=== PATIENT | female | born 1990 | race American Indian/Alaskan Native ===

== ENCOUNTER 2020-07-05 16:43 | Outpatient (REF) | payer OTHER, SELFPAY ==
--- NOTE | 2020-07-05 16:53 | XR_ITS ---
EXAMINATION: XR HAND, BILATERAL CLINICAL INFORMATION: Pain. COMPARISON: None TECHNIQUE: Each 3 views bilateral hands. FINDINGS: In bilateral hands, there is no evidence of fracture or dislocation. Joint spaces are maintained. No evidence of significant arthropathy. No erosions. No abnormal soft tissue calcification. Normal bone mineralization. XR/XR hand LT 2V IMPRESSION: No evidence of acute osseous abnormality.
--- NOTE | 2020-07-05 16:53 | XR_ITS ---
EXAMINATION: XR HAND, BILATERAL CLINICAL INFORMATION: Pain. COMPARISON: None TECHNIQUE: Each 3 views bilateral hands. FINDINGS: In bilateral hands, there is no evidence of fracture or dislocation. Joint spaces are maintained. No evidence of significant arthropathy. No erosions. No abnormal soft tissue calcification. Normal bone mineralization. XR/XR hand RT 2V IMPRESSION: No evidence of acute osseous abnormality.
== END 2020-07-05 16:44 | disposition home or self-care (01) ==
LOC: HO.XRAY 16:43
PROVIDERS: PCP Internal Medicine; Visit Provider Internal Medicine
DX: M79.643 Pain in unspecified hand (principal)
CPT/HCPCS: 73120

== ENCOUNTER 2020-07-19 14:09 | Outpatient (RCR) | payer OTHER, SELFPAY ==
--- NOTE | 2020-07-19 15:38 | MHC.OT.OEV ---
[address] [phone] F: [phone] Occupational Therapy Evaluation Diagnosis: Hand Pain Date of Onset: 03/23/20 Attending Provider: Dr Sal Hilliard History of Current Condition: Pt presents w/ pain in bilateral wrists and hands over the past few months. She has x-rays which showed no abnormalities. 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) Living Situation, Family and/or Social Support: Lives w/ partner and four children Current Level of Function and Occupation Self Care, Employment, Leisure: Difficulty lifting objects, opening containers, attempted push-ups and had pain, pain after bowling Sleep: Some numbness B/L UE's when sleeping Pain Assessment Pain Score: 4 Pain Scale Used: Numeric (0 - 10) Pain Location and Description: Pt reports constant pain, some numbness, worsens w/ increased work and use Aggravating Factors: Lifting, grasping Alleviating Factors: None tried Skin and Soft Tissue Assessment Skin and Soft Tissue: Comments: WNL Nerve assessment Ulnar Nerve: WNL Median Nerve: WNL Radial Nerve: WNL Comments: Sensory Assessment Comments: B/L hands/digits diminished light touch Edema Assessment Upper Extremity: WNL Lower Extremity: WNL Dexterity Assessment Dexterity: WNL Special Tests Comments: (-) Phalen's B/L'ly AROM(PROM) Strength Cervical Cervical Flexion: Cervical Extension: Cervical Lateral Flexion: Cervical Rotation: Comments: WNL Shoulder Flexion: Extension: Abduction: Internal Rotation: External Rotation: Comments: WNL Flexion: Extension: Abduction: Internal Rotation: External Rotation: Comments: Elbow Flexion: Extension: Pronation: Supination: Comments: WFL Flexion: Extension: Pronation: Supination: Comments: Wrist Flexion: Extension: Ulnar Deviation: Radial Deviation: Comments: WFL Flexion: Extension: Ulnar Deviation: Radial Deviation: Comments: Thumb Thumb CMC Flexion: Thumb MCP Flexion: Thumb IP Flexion: Radial Abduction: Palmar Abduction: Holt (Kapandji 0-10): Comments: WFL Digits Index MCP: PIP: DIP: Long MCP: PIP: DIP: Ring MCP: PIP: DIP: Small MCP: PIP: DIP: Comments: WFL (limtied full composite fist only due to artificial nail length) Gross Grasp: R 70lb L 60lb Lateral Pinch: R 17lb L 16lb Two-Point Pinch: R 10lb L 9lb Three-Jaw Deepak: R 12lb L 13lb Comments: Patient Education Primary Language: Montenegrin Trials Manager Required: No Current Knowledge: Understands information with skills for self-management Teaching Method: Demonstration Handouts Verbal Education Needs Identified on Evaluation: ADL's Disease Information Equipment Use Exercise Pain Safety How did patient/family demonstrate learning? Patient demonstrates Patient verbalizes Barriers to Learning: None Readiness for Learning: Accepting Who was educated? Patient Comments: Plan of Care Assessment: Isatu presents w/ bilateral hand/wrist pain and numbness, numbness worsening at nighttime and hand pain more w/ heavy activity. On assessment, no indication of tendinitis or carpal tunnel syndrome. UE symptoms may be originating from postural issues and upper back weakness. She also has long artificial nails which may be contributing to intrinsic tightness. She will benefit from brief course of OT for education on activity modifications and positioning as well as UE exercises and strengthening. STG Duration: 3 weeks Short Term Goals: Ind w/ HEP Ind w/ activity and sleep modifications Pt to report decrease in nighttime symptoms Pt to report decrease in hand pain use joint protection/act modifications LTG Duration: Mcfp Goals: Frequency and Duration: The patient will be seen 2x/wk, 3 weeks Treatment Plan: Therapeutic Exercise Therapeutic Activity Home Exercise Program Patient Education ADL Training MHP Soft Tissue Mobilization Kinesiotaping Electronically Signed By: Trudi Ayon OTR/L Reviewed/agree with student documentation: N/A Therapist: Please sign and return to therapist, Thank you for your referral.
== END 2020-09-07 07:51 | disposition home or self-care (01) ==
LOC: HO.OT 14:09
PROVIDERS: PCP Internal Medicine; Visit Provider Internal Medicine
DX: M79.643 Pain in unspecified hand (principal)
CPT/HCPCS: 97110; 97165

== ENCOUNTER 2020-07-26 11:36 | Outpatient (REF) | payer OTHER, SELFPAY | END 2020-07-26 11:37 | disposition home or self-care (01) | LOC: HO.LAB 11:36 | PROVIDERS: Visit Provider Internal Medicine | DX: Z20.828 Contact with and (suspected) exposure to other viral communicable diseases (principal) | CPT/HCPCS: 36415; C9803; U0003 ==

== ENCOUNTER 2020-11-18 10:50 | Outpatient (REF) | payer OTHER, SELFPAY ==
[2020-11-18 12:23] LABS: Thyroid Stimulating Hormone 1.13 uIU/mL (0.32-4.0)
== END 2020-11-18 10:51 | disposition home or self-care (01) ==
LOC: HO.LAB 10:50
PROVIDERS: PCP Internal Medicine; Visit Provider Internal Medicine Endocrinology, Diabetes & Metabolism
DX: E03.8 Other specified hypothyroidism (principal)
CPT/HCPCS: 36415; 84439; 84443

== ENCOUNTER → 2020-11-24 08:00 | Outpatient (BNVA) | payer OTHER, SELFPAY | PROVIDERS: PCP Internal Medicine; Visit Provider Internal Medicine Endocrinology, Diabetes & Metabolism | DX: E03.8 Other specified hypothyroidism (principal); E06.3 Autoimmune thyroiditis; E66.9 Obesity, unspecified | CPT/HCPCS: 99212 ==

== ENCOUNTER 2021-02-28 09:26 | Outpatient (REF) | payer OTHER, SELFPAY ==
[2021-03-01 03:58] LABS: CT PCR NOT DETECTED (Not Detect.); NG PCR NOT DETECTED (Not Detect.)
== END 2021-02-28 09:27 | disposition home or self-care (01) ==
LOC: HO.LAB 09:26
PROVIDERS: PCP Internal Medicine; Visit Provider Advanced Practice Midwife
DX: Z01.411 Encounter for gynecological examination (general) (routine) with abnormal findings (principal); Z11.3 Encounter for screening for infections with a predominantly sexual mode of transmission; T83.32XA Displacement of intrauterine contraceptive device, initial encounter; D22.5 Melanocytic nevi of trunk; Z20.2 Contact with and (suspected) exposure to infections with a predominantly sexual mode of transmission
CPT/HCPCS: 87491; 87591

== ENCOUNTER 2021-03-02 12:42 | Outpatient (REF) | payer OTHER, SELFPAY ==
--- NOTE | ~2021-03-02 | US_ITS ---
EXAMINATION: US PELVIS TRANSVAGINAL CLINICAL INFORMATION: Displacement of the IUD. COMPARISON: None. TECHNIQUE: Transcutaneous and transvaginal pelvic ultrasound. Transvaginal scanning was performed after voiding to better evaluate the endometrium and adnexa. FINDINGS: The uterus measures 9.2 x 4.0 x 5.6 cm. The uterus is anteverted. No suspicious abnormalities region of the cervix. The uterine contour is smooth. The endometrium measures 0.57 cm. The uterus appears to have either a septate versus arcuate configuration. The IUD is seen to be lying in the lower uterine segment and cervix. There is a small echogenic focus seen within the left posterior endometrium and does not have the appearance of a polyp. No definite hematoma is appreciated. No definite perforation of the IUD is seen. The right ovary measures approximately 3.1 x 1.5 x 2.1 cm. The calculated right ovarian volume is approximately 5.3 mL. No suspicious adnexal findings. The left ovary measures 4.2 x 2.5 x 3.5 cm. The calculated left ovarian volume is approximately 19.3 mL. Within the left adnexa, there is a 1.2 x 2.0 x 1.9 cm complex fluid collection which may represent a hemorrhagic cyst/corpus luteum. No significant free pelvic fluid. US/US pelvic and transvaginal IMPRESSION: Septate versus arcuate uterus. IUD lying in the lower uterine segment and cervix without definite evidence of uterine wall perforation. Complex left ovarian cyst.
== END 2021-03-02 12:43 | disposition home or self-care (01) ==
LOC: HO.HMGCX 12:42
PROVIDERS: PCP Internal Medicine; Visit Provider Advanced Practice Midwife
DX: T83.32XA Displacement of intrauterine contraceptive device, initial encounter (principal)
CPT/HCPCS: 76830; 76856

== ENCOUNTER → 2021-03-16 10:34 | Outpatient (BNVA) | payer OTHER, SELFPAY | PROVIDERS: PCP Internal Medicine; Visit Provider Advanced Practice Midwife ==

== ENCOUNTER → 2021-03-21 08:45 | Outpatient (BNVA) | payer OTHER, SELFPAY | PROVIDERS: PCP Internal Medicine; Visit Provider Advanced Practice Midwife | DX: Z30.432 Encounter for removal of intrauterine contraceptive device (principal); Z30.09 Encounter for other general counseling and advice on contraception | CPT/HCPCS: 58301; 81025 ==

== ENCOUNTER → 2021-04-05 08:49 | Outpatient (BNVA) | payer OTHER, SELFPAY | PROVIDERS: PCP Internal Medicine; Visit Provider Advanced Practice Midwife | DX: Z30.09 Encounter for other general counseling and advice on contraception (principal) | CPT/HCPCS: 81025; 99212 ==

== ENCOUNTER 2021-05-25 11:22 | Outpatient (REF) | payer OTHER, SELFPAY ==
--- NOTE | ~2021-05-25 | US_ITS ---
EXAMINATION: ULTRASOUND OF THE PELVIS CLINICAL INFORMATION: Follow-up ovarian cyst.. COMPARISON: 03/02/2021. TECHNIQUE: Transabdominal and transvaginal pelvic ultrasound. A transvaginal study was performed in addition to the transabdominal study which did not yield an adequate examination of the uterus and ovaries due to superimposed distended gas-filled loops of bowel. FINDINGS: The uterus is normal in size and appearance, measuring 9.3 x 3.6 x 5.5 cm longitudinally, anteroposteriorly and transversely. The endometrial stripe thickness is normal, measuring 0.8 cm in thickness. The IUD has been removed. Again there is suggestion of septate versus arcuate uterus. No focal myometrial mass is seen. The ovaries bilaterally are visualized and appear normal, with the right ovary measuring 3.7 x 2.2 x 1.9 cm and the left ovary measuring 2.8 x 2.2 x 2.8 cm. There are multiple follicles seen in both ovaries. Corpus luteal cyst on the right measures 1.9 cm. No adnexal mass or free fluid collection seen. US/US pelvic and transvaginal IMPRESSION: No suspicious ovarian cyst. Right corpus luteum. Previously seen left ovarian complex cyst has resolved..
== END 2021-05-25 11:23 | disposition home or self-care (01) ==
LOC: HO.US 11:22
PROVIDERS: PCP Internal Medicine; Visit Provider Advanced Practice Midwife
DX: N83.299 Other ovarian cyst, unspecified side (principal)
CPT/HCPCS: 76830; 76856

== ENCOUNTER → 2021-06-08 11:16 | Outpatient (BNVA) | payer OTHER, SELFPAY | PROVIDERS: Visit Provider Advanced Practice Midwife ==

== ENCOUNTER 2021-07-12 09:59 | Outpatient (REF) | payer OTHER, SELFPAY ==
[2021-07-12 11:27] LABS: COVID-19 Test Negative (Negative); IDNOW Serial# 16C4AD1C
== END 2021-07-12 10:00 | disposition home or self-care (01) ==
LOC: HO.LAB 09:59
PROVIDERS: Visit Provider Internal Medicine
DX: Z20.822 Contact with and (suspected) exposure to COVID-19 (principal)
CPT/HCPCS: 36415; 87635; C9803

== ENCOUNTER 2021-07-21 14:35 | Outpatient (REF) | payer OTHER, SELFPAY ==
[2021-07-21 16:20] LABS: Binax Internal Control QC Valid; Binax Lot number: 9864; Binax Now Covid-19 Ag Negative (Negative)
== END 2021-07-21 14:36 | disposition home or self-care (01) ==
LOC: HO.LAB 14:35
PROVIDERS: Visit Provider Internal Medicine
DX: Z20.822 Contact with and (suspected) exposure to COVID-19 (principal)
CPT/HCPCS: 36415; C9803

== ENCOUNTER 2022-03-01 09:46 | Outpatient (REF) | payer OTHER, SELFPAY | END 2022-03-01 09:47 | disposition home or self-care (01) | LOC: HO.LAB 09:46 | PROVIDERS: Visit Provider Advanced Practice Midwife | DX: Z01.419 Encounter for gynecological examination (general) (routine) without abnormal findings (principal) | CPT/HCPCS: 88142 ==

== ENCOUNTER 2022-03-14 09:32 | Outpatient (REF) | payer OTHER, SELFPAY ==
[2022-03-14 11:52] LABS: Free T4 (Free Thyroxine) 0.71 ng/dL (0.71-1.85); Thyroid Stimulating Hormone 48.29 uIU/mL (0.32-4.0)
== END 2022-03-14 09:33 | disposition home or self-care (01) ==
LOC: HO.LAB 09:32
PROVIDERS: PCP Internal Medicine; Visit Provider Internal Medicine Endocrinology, Diabetes & Metabolism
DX: E03.8 Other specified hypothyroidism (principal); E06.3 Autoimmune thyroiditis
CPT/HCPCS: 36415; 84439; 84443

== ENCOUNTER 2022-04-19 09:02 | Outpatient (REF) | payer OTHER, SELFPAY ==
[2022-04-19 09:29] LABS: COVID-19 Test Positive (Negative); IDNOW Serial# 55D5AD1C
== END 2022-04-19 09:03 | disposition home or self-care (01) ==
LOC: HO.LAB 09:02
PROVIDERS: Visit Provider Internal Medicine
DX: Z20.822 Contact with and (suspected) exposure to COVID-19 (principal)
CPT/HCPCS: 87635; C9803

== ENCOUNTER 2022-04-24 09:07 | Outpatient (REF) | payer OTHER, SELFPAY ==
[2022-04-24 09:46] LABS: COVID-19 Test Positive (Negative); IDNOW Serial# 55D5AD1C
== END 2022-04-24 09:08 | disposition home or self-care (01) ==
LOC: HO.LAB 09:07
PROVIDERS: Visit Provider Internal Medicine
DX: Z20.822 Contact with and (suspected) exposure to COVID-19 (principal)
CPT/HCPCS: 87635; C9803

== ENCOUNTER 2022-05-24 09:18 | Outpatient (REF) | payer OTHER, SELFPAY ==
[2022-05-24 11:01] LABS: Free T4 (Free Thyroxine) 1.18 ng/dL (0.71-1.85); Thyroid Stimulating Hormone 5.66 uIU/mL (0.32-4.0)
== END 2022-05-24 09:19 | disposition home or self-care (01) ==
LOC: HO.LAB 09:18
PROVIDERS: PCP Internal Medicine; Visit Provider Internal Medicine Endocrinology, Diabetes & Metabolism
DX: E03.8 Other specified hypothyroidism (principal); E06.3 Autoimmune thyroiditis
CPT/HCPCS: 36415; 84439; 84443

== ENCOUNTER 2022-06-22 10:51 | Outpatient (REF) | payer OTHER, SELFPAY ==
[2022-06-22 11:01] LABS: MANUAL DIFF FLAG NO
[2022-06-22 11:47] LABS: Basophils Percent Auto 0.4 % (0-2); Eosinophils Absolute Auto 0.1 X10*3/uL (0.0-0.4); Hematocrit 38.9 % (37.0-47.0); Hemoglobin 12.5 g/dl (12.0-16.0); Imm Gran Abs Auto 0.02 X10*3/uL (0.00-0.03); Imm Gran Pct Auto 0.3 % (0.0-0.4); Lymphocytes Absolute Auto 1.8 X10*3/uL (1.2-4.9); Lymphocytes Percent Auto 25.7 % (20-40); Mean Corpuscular HGB Conc 32.1 g/dl (31.0-35.0); Mean Corpuscular Hemoglobin 27.6 pg (27.0-33.0); Mean Corpuscular Volume 85.9 fL (80.0-98.0); Mean Platelet Volume 10.7 fL (9.4-12.3); Monocytes Absolute Auto 0.5 X10*3/uL (0.1-1.2); Monocytes Percent Auto 7.5 % (2-11); Neutrophils Absolute Auto 4.5 x10*3/uL (2.0-8.3); Neutrophils Percent Auto 65.1 % (45-73); Platelet Count 295 X10*3/uL (160-400); Red Blood Count 4.53 X10*6/uL (4.20-5.50); Red Cell Distribution Width 11.7 % (11.0-16.0); White Blood Count 6.9 X10*3/uL (4.8-10.8)
[2022-06-22 12:40] LABS: Alanine Aminotransferase 12 U/L (0-31); Albumin Level 4.3 g/dL (3.5-5.0); Alkaline Phosphatase 64 U/L (39-117); Anion Gap 10 (12-20); Aspartate Amino Transferase 17 U/L (5-31); Bilirubin Total 0.4 mg/dL (0.0-1.0); Blood Urea Nitrogen 8 mg/dL (9-16); Calcium 10.1 mg/dL (8.4-10.2); Carbon Dioxide 29 mmol/L (22-29); Chloride 101 mmol/L (96-108); Estimated Glomerular Filt Rate > 60; Glucose Random 82 mg/dL (60-115); Potassium 4.4 mmol/L (3.3-5.1); Sodium 136 mmol/L (135-145); Total Protein 6.7 g/dL (6.5-8.0); Vitamin D 25-OH Total 32.8 ng/mL (>30)
== END 2022-06-22 10:52 | disposition home or self-care (01) ==
LOC: HO.LAB 10:51
PROVIDERS: PCP Internal Medicine; Visit Provider Nurse Practitioner Family
DX: Z00.00 Encounter for general adult medical examination without abnormal findings (principal)
CPT/HCPCS: 36415; 80053; 82306; 85025

== ENCOUNTER 2022-08-24 16:41 | Outpatient (REF) | payer OTHER, SELFPAY ==
[2022-08-24 17:54] LABS: Free T4 (Free Thyroxine) 1.18 ng/dL (0.71-1.85); Thyroid Stimulating Hormone 2.39 uIU/mL (0.32-4.0)
== END 2022-08-24 16:42 | disposition home or self-care (01) ==
LOC: HO.LAB 16:41
PROVIDERS: PCP Internal Medicine; Visit Provider Internal Medicine Endocrinology, Diabetes & Metabolism
DX: E03.8 Other specified hypothyroidism (principal); E06.3 Autoimmune thyroiditis
CPT/HCPCS: 36415; 84439; 84443

== ENCOUNTER → 2022-08-25 15:52 | Outpatient (BNVA) | payer OTHER, SELFPAY | PROVIDERS: PCP Internal Medicine; Visit Provider Internal Medicine Endocrinology, Diabetes & Metabolism | DX: E03.8 Other specified hypothyroidism (principal); E06.3 Autoimmune thyroiditis; Z79.899 Other long term (current) drug therapy | CPT/HCPCS: 99212 ==

== ENCOUNTER 2023-03-19 16:17 | Outpatient (REF) | payer OTHER, SELFPAY ==
[2023-03-19 18:26] LABS: Thyroid Stimulating Hormone 29.33 uIU/mL (0.32-4.0)
== END 2023-03-19 16:18 | disposition home or self-care (01) ==
LOC: HO.LAB 16:17
PROVIDERS: PCP Internal Medicine; Visit Provider Internal Medicine
DX: E03.8 Other specified hypothyroidism (principal); E06.3 Autoimmune thyroiditis
CPT/HCPCS: 36415; 84443

== ENCOUNTER 2023-06-18 12:07 | Outpatient (REF) | payer OTHER, SELFPAY ==
[2023-06-18 13:38] LABS: Thyroid Stimulating Hormone 3.91 uIU/mL (0.32-4.0)
== END 2023-06-18 12:08 | disposition home or self-care (01) ==
LOC: HO.LAB 12:07
PROVIDERS: PCP Internal Medicine; Visit Provider Internal Medicine
DX: E03.8 Other specified hypothyroidism (principal); E06.3 Autoimmune thyroiditis
CPT/HCPCS: 36415; 84443

== ENCOUNTER 2023-06-20 12:44 | Outpatient (AMB) | payer OTHER, SELFPAY ==
--- NOTE | 2023-06-20 13:03 | AM.OFFVISNUR ---
Intake Intake Visit Reasons: PPD Implant Allergies No Known Allergies Allergy (Verified 08/25/22 15:58) Office Meds tuberculin PPD 5 tub. unit/0.1 mL intradermal injection solution Performing Provider: Sharon Hilliard MD [place] [facility] Administered by: Diana Walls RN on 06/20/23 13:03 Dose Route Admin Location Dispensed Lot Number Expiration Date NDC Travel Registered Nurse Nicu 0.1 mL intradermal right forearm 0.1 mL [id number] 07/22/26 87135-383-95 [employer] Coding Assessment & Plan Assessment & Plan Orders: Orders AMB PPD Planted Today Z11.1 - Encounter for screening for respiratory tuberculosis
== END 2023-06-20 13:12 | disposition home or self-care (01) ==
PROVIDERS: PCP Internal Medicine; Visit Provider Internal Medicine
DX: Z11.1 Encounter for screening for respiratory tuberculosis (principal)
CPT/HCPCS: 86580

== ENCOUNTER 2023-06-25 08:20 | Outpatient (REF) | payer OTHER, SELFPAY ==
--- NOTE | ~2023-06-25 | XR_ITS ---
EXAMINATION: XR CHEST CLINICAL INFORMATION: Positive TB test COMPARISON: 09/02/2018 TECHNIQUE: 2 views of the chest were obtained. FINDINGS: No significant abnormality is noted involving the heart, lungs, mediastinum, bony thorax or soft tissues. XR/XR chest 2V IMPRESSION: Unremarkable examination, without interval change.
== END 2023-06-25 08:21 | disposition home or self-care (01) ==
LOC: HO.XRAY 08:20
PROVIDERS: Visit Provider Internal Medicine
DX: R76.11 Nonspecific reaction to tuberculin skin test without active tuberculosis (principal)
CPT/HCPCS: 71046

== ENCOUNTER 2023-07-02 09:17 | Outpatient (AMB) | payer OTHER, SELFPAY ==
[2023-07-02 09:25] VITALS: BP 102/60; PULSE 70; BMI 30.9
--- NOTE | 2023-07-02 09:25 | A.OFFPC_ITS ---
Vital Signs 07/02/23 09:25 Height 5 ft 3 in Weight 174 lb 6 oz BMI 30.9 BP 102/60 Blood Pressure Location Lt brachial Position Sitting Pulse 70 Pulse Source Palpation Intake Visit Reasons: Annual Exam + NEEDS PHQ-9/THRIVE Audiometrist Required: No Accompanied by: Self / Same As Patient Allergies No Known Allergies Allergy (Verified 07/02/23 09:32) Medication List - Last Reconciled 07/02/23 by Sharon Hilliard MD levothyroxine 112 mcg PO DAILY Tobacco use date assessed: 06/22/22 HPI HPI Comments History of Present Illness Details This is a 32-year-old female that comes for her physical exam. Last Pap smear was 2021. No chest pain or shortness of breath. [facility] Medical History Acute bacterial sinusitis Arcuate uterus Obesity (BMI 30-39.9) Hand pain Hypothyroidism Surgical History History of section Family History Father CVD (cardiovascular disease) Schizophrenia Mother Hypertension Pancreatic cancer Maternal Grandmother Anal cancer Family/Other FH: mental illness Other Mental health disorder Social History Housing: House Alcohol intake: current Alcohol intake frequency: a few times a month Patient Tobacco Use Status: Never used Tobacco e-Cigarette/Vaping Use: Never Used Second Hand Smoke Exposure: No service: No Current occupational status: employed Current occupation: [employer] Sexual orientation: Straight/Heterosexual Gender identity: Female Cognitive needs: No Hearing needs: No Vision needs: No Female Reproductive History Menstrual Age of Menarche: 14 Questionnaire PHQ-9 Over the last 2 weeks, how often have you been bothered by any of the following problems? 1. Little interest or pleasure in doing things: not at all 2. Feeling down, depressed, or hopeless: not at all 3. Trouble falling or staying asleep, or sleeping too much: not at all 4. Feeling tired or having little energy: not at all 5. Poor appetite or overeating: not at all 6. Feeling bad about yourself - or that you are a failure or have let yourself or your family down: not at all 7. Trouble concentrating on things, such as reading the newspaper or watching television: not at all 8. Moving or speaking so slowly that other people could have noticed. Or the opposite - being so fidgety or restless that you have been moving around a lot more than usual: not at all 9. Thoughts that you would be better off or of hurting yourself in some way: not at all Total score: 0 Depression Screening Interpretation: Negative Depression Screening Done: Yes 27406 - PHQ-9 Billing: Yes Source: Developed by Drs. Juwan Norton, Tish Perales, Angus Guzman and colleagues, with an educational kia from [employer]. Thrive Questionnaire Date Thrive assessed: 07/02/23 I am a: Patient What is your living situation today?: I have a steady place to live Within the past 12 months, did the food you bought not last and you didn't have the money to get more?: Never true Within the past 12 months, did you worry whether your food would run out before you got money to buy more?: Never true Do you have trouble paying for medicines?: No Do you have trouble getting transportation to medical appointments?: No Do you have trouble paying your heating and electricity bill?: No Do you have trouble taking care of your child, family member or friend?: No Do you have trouble with day-to-day activities such as bathing, preparing meals, shopping, managing finances, etc.?: No Are you currently unemployed and looking for a job?: No Are you interested in more education?: No Please select the resources that you would like help with: None Currently or been in a relationship where the following occur: no concerns reported AUDIT C Alcohol Use Questionnaire (AUDIT-C) 1. How often do you have a drink containing alcohol?: Monthly or less 2. How many drinks containing alcohol do you have on a typical day when you are drinking?: 3 or 4 3. How often do you have six or more drinks on one occasion?: Less than monthly Total Score: 3 DANITA-7 AMB Questionnaire DANITA-7 Date DANITA - 7 assessed: 07/02/23 Feeling nervous, anxious, or on edge: 0 = Not at all Not being able to stop or control worryin = Not at all Worrying too much about different things: 0 = Not at all Trouble relaxin = Not at all Being so restless that it is hard to sit still: 0 = Not at all Becoming easily annoyed or irritable: 0 = Not at all Feeling afraid as if something awful might happen: 0 = Not at all Total DANITA-7 score (0-4 normal; 5-9 mild; 10-14 moderate; 15-21 severe): 0 Source: Developed by Drs. Juwan Norton, Tish Perales, Angus Guzman and colleagues, with an educational kia from [employer]. DANITA-7 Assessment Billing DANITA-7 Assessment Tool: DANITA-7 Assessment 76592 Review of Systems Const All systems reviewed & are unremarkable except as noted in HPI and below Eyes Reports no additional complaints, Denies change in vision and Denies other visual disturbances Card Denies chest pain at rest, Denies chest pain with activity, Denies edema, Denies irregular heart rhythm, Denies claudication, Denies dyspnea, Denies dyspnea on exertion, Denies orthopnea, Denies paroxysmal nocturnal dyspnea and Denies slow heart rate Resp Denies cough, Denies dyspnea and Denies dyspnea on exertion GI Denies abdominal pain, Denies change in bowel habits, Denies excessive flatus, Denies nausea and Denies vomiting Denies urinary incontinence, Denies urinary hesitancy and Denies urinary urgency Musc Denies abnormal gait, Denies atrophy, Denies deformity and Denies limited range of motion Skin/Breast Denies bleeding lesions, Denies changing lesions and Denies rash Neuro Denies abnormal gait, Denies behavioral changes, Denies confusion and Denies lack of coordination Psych Denies behavioral changes and Denies confusion Physical exam (Primary Care) Vital Signs: Last Vital Signs Pulse 70 07/02/23 09:25 BP 102/60 07/02/23 09:25 BMI result Body Mass Index 30.9 Tobacco/Smoking Status: Tobacco use Status Tobacco use date assessed 06/22/22 07/02/23 09:29 Patient Tobacco Use Status Never used Tobacco 07/02/23 09:29 e-Cigarette/Vaping Use Never Used 07/02/23 09:29 PHQ-9: PHQ-9 Score PHQ-9: Total score 0 07/02/23 09:55 Depression Screening Interpretation: Negative Thrive Assessment: Date of Thrive Assessment Date Thrive assessed 07/02/23 07/02/23 09:32 Currently or been in a relationship where the following occur: no concerns r eported Const General: No confusion Orientation/consciousness: patient oriented x3 and No confusion HENMT Head: Yes normal to inspection, Yes normocephalic and Yes atraumatic Ears: external ears normal Eyes General: appearance normal, both eyes and all related structures Eyelids: Yes eyelids normal Conjunctivae: conjunctivae normal Neck Neck: Yes normal visual inspection and Yes supple Resp Effort & Inspection: normal respiratory effort Auscultation: clear to auscultation bilaterally Cardio Jugular venous distension: no JVD Rate: regular rate Rhythm: regular rhythm Heart sounds: S1 normal heart sound present and S2 normal heart sound present GI Inspection: Yes normal to inspection Palpation (GI): Soft to palpation and nontender Auscultation: normal bowel sounds Skin General skin exam: no rashes or lesions noted Neuro General: patient oriented x3, no focal motor deficits and No confusion Extrem General: Yes full ROM Psych Appearance: grossly normal Office Procedures Flu Questionnaire Does the patient have a severe egg allergy?: No Does the patient have severe life threatening allergies?: No Does the patient have a fever or illness today?: No Has the patient ever had Guillain-[place] Syndrome?: No Has the patient ever had any past reaction to a flu shot?: No Immunizations flu vacc [id number] 6mos up(PF) 60 mcg(15 mcgx4)/0.5 mL IM syringe Performing Provider: Sharon Hilliard MD [facility] Administered by: JERROD Torres on 07/02/23 09:32 Dose Route Admin Location Dispensed Lot Number Expiration Date NDC Oil 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 Orders: Orders Thyroid Stimulating Hormone 6 Months E03.8 - Other specified hypothyroidism, E06.3 - Autoimmune thyroiditis Influenza [id number] Immunization Today Z23 - Encounter for immunization Referrals Counseling Referral F43.20 - Adjustment disorder, unspecified Coding Level of Care Code Est Pt Prev Care 18-39y(97537) Diagnoses Adult general medical exam Z00.00 Additional Codes DANITA-7 Assessment Billing - DANITA-7 Assessment Tool: DANITA-7 Assessment 47661 ([id number]) Time Spent (min) 31
== END 2023-07-02 10:23 | disposition home or self-care (01) ==
PROVIDERS: Visit Provider Internal Medicine
DX: Z00.00 Encounter for general adult medical examination without abnormal findings (principal); Z23 Encounter for immunization
CPT/HCPCS: 90471; 90686; 99395

== ENCOUNTER 2023-08-14 14:04 | Outpatient (REF) | payer OTHER, SELFPAY ==
[2023-08-14 17:39] LABS: CT PCR NOT DETECTED (Not Detect.); NG PCR NOT DETECTED (Not Detect.)
[2023-08-15 09:02] LABS: Syphilis Screen Nonreactive (Nonreactive)
[2023-08-15 09:28] LABS: HBc Num1 0.08 S/CO (0.00-0.79); HIV AB/AG Nonreactive (Nonreactive); HIV Num 1 0.07 S/CO (0.00-0.99); Hepatitis B Core Antibody Nonreactive (Nonreactive); ~HepC Num1 0.06 S/CO (0.00-0.79); ~Hepatitis C Antibody Nonreactive (Nonreactive)
[2023-08-18 06:43] LABS: HPV mRNA E6/E7 rflx Not Detected (Not Detected)
== END 2023-08-14 14:05 | disposition home or self-care (01) ==
LOC: HO.LAB 14:04
PROVIDERS: PCP Internal Medicine; Visit Provider Advanced Practice Midwife
DX: Z01.419 Encounter for gynecological examination (general) (routine) without abnormal findings (principal); Z11.59 Encounter for screening for other viral diseases; Z11.4 Encounter for screening for human immunodeficiency virus [HIV]; Z20.2 Contact with and (suspected) exposure to infections with a predominantly sexual mode of transmission; Z11.51 Encounter for screening for human papillomavirus (HPV)
CPT/HCPCS: 0353U; 86704; 86780; 86803; 87389; 87624; 88142; 99395

== ENCOUNTER 2023-08-14 14:04 | Outpatient (AMB) | payer OTHER, SELFPAY ==
--- NOTE | 2023-08-14 14:09 | A.OFFVIS_ITS ---
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 Doing well with no concerns. She tries to eat healthy and stays active with exercise. Regular monthly menses. Currently is sexually active. She declines control wants to continue with the withdrawal method for now. She denies vaginal itching and irritation. STI screening offered; she accepts. Denies family history of breast, ovarian or colon cancer. Last pap smear 2021, negative. [facility] Medical History Acute bacterial sinusitis Arcuate uterus Obesity (BMI 30-39.9) Hand pain Hypothyroidism Surgical History History of section Family History Father CVD (cardiovascular disease) Schizophrenia Mother Hypertension Pancreatic cancer Maternal Grandmother Anal cancer Family/Other FH: mental illness Other Mental health disorder Social History Housing: House Alcohol intake: current Alcohol intake frequency: a few times a month Patient Tobacco Use Status: Never used Tobacco e-Cigarette/Vaping Use: Never Used Second Hand Smoke Exposure: No service: No Current occupational status: employed Current occupation: [employer] Sexual orientation: Straight/Heterosexual Gender identity: Female Cognitive needs: No Hearing needs: No Vision needs: No Female Reproductive History Menstrual Age of Menarche: 14 Duration of menses: 3-5 days Date of last menstrual period: 07/22/23 control method: none Total pregnancies: 2 Full term: 1 Number of Living Children: 1 Ab spontaneous: 1 Date of last pap smear: 03/01/22 (neg) Review of Systems Const All systems reviewed & are unremarkable except as noted in HPI and below Reports as per HPI Eyes Reports no additional complaints ENT Reports no additional complaints Card Reports no additional complaints Resp Reports no additional complaints GI Reports as per HPI and Reports no additional complaints Reports as per HPI Musc Reports no additional complaints Skin/Breast Reports as per HPI Neuro Reports no additional complaints Psych Reports no additional complaints Endo Reports no additional complaints Fredo/Lymph Reports no additional complaints Aller/Immun Reports no additional complaints Physical Exam Vital Signs: Last Vital Signs BP 100/58 L 08/14/23 14:11 BMI result Body Mass Index 32.1 Const General: cooperative, healthy appearing, no acute distress, well developed and alert Orientation/consciousness: patient oriented x3 HEENT Head: Yes normal to inspection Eyes General: appearance normal, both eyes and all related structures Neck Neck: Yes normal visual inspection Thyroid: Thyroid normal Chest Chest palpation & inspection: normal inspection of the chest and other (no puckering, dimpling, peau de orange, retraction, discharge, masses) Breast/axilla inspection: normal inspection of the breasts Breast/axilla palpation: normal palpation of the breasts Resp Effort & Inspection: normal respiratory effort GI Inspection: Yes normal to inspection Palpation (GI): Soft to palpation Rectal Exam - Female: deferred General: Yes bladder normal to palpation External Female Exam: normal external appearance and normal appearance of the urethra Speculum Exam - Vagina: normal appearance of the vagina, normal palpation and normal vaginal discharge Speculum Exam - Cervix: normal appearance of the cervix, normal palpation and Other cervical findings present (Bled with Pap) Bimanual exam- vagina & uterus: normal bimanual exam, normal palpation, uterine size normal, bladder normal to palpation, normal palpation and non-tender Bimanual Exam- Adnexa, other: no masses Skin General skin exam: no rashes or lesions noted Rashes: no rashes Neuro General: patient oriented x3 Cognition (Neuro): normal cognition Extrem General: Yes normal to inspection Psych Attitude: cooperative Thought process: Normal thought process present Assessment & Plan Assessment & Plan (1) Encounter for well woman exam with routine gynecological exam: Code(s): Z01.419 - Encounter for gynecological examination (general) (routine) without abnormal findings Plan Discussed: Current recommendations for pap smears per ASCCP guidelines. Breast awareness and periodic breast exams. Maintain a healthy lifestyle including a well balanced diet and routine exercise. Use condoms for STI and prevention. Offered control she declined advised to call if she wants to do con trol consult in the future. All of her questions and concerns were addressed to the best of my ability. 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 This note is constructed using voice recognition software. While every effort has been made to ensure accuracy, coal tram driver errors may have been included. Orders: Orders Hepatitis C Antibody Today Z20.2 - Contact with and (suspected) exposure to infections with a predominantly sexual mode of transmission Hepatitis B Core Antibody Today Z20.2 - Contact with and (suspected) exposure to infections with a predominantly sexual mode of transmission HIV Ab/Ag Today Z20.2 - Contact with and (suspected) exposure to infections with a predominantly sexual mode of transmission Syphilis Screen Today Z20.2 - Contact with and (suspected) exposure to infections with a predominantly sexual mode of transmission Coding Level of Care Code Est Pt Prev Care 18-39y(46421) Diagnoses Encounter for well woman exam with routine gynecological exam Z01.419
[2023-08-14 14:11] VITALS: BP 100/58; BMI 32.1
== END 2023-08-14 15:00 | disposition home or self-care (01) ==
PROVIDERS: PCP Internal Medicine; Visit Provider Advanced Practice Midwife
DX: Z01.419 Encounter for gynecological examination (general) (routine) without abnormal findings (principal)
CPT/HCPCS: 99395

== ENCOUNTER 2024-07-10 16:07 | Outpatient (AMB) | payer OTHER, SELFPAY ==
--- NOTE | 2024-07-10 16:28 | MHC.PC.OV ---
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: No Accompanied by: Self / Same As Patient Allergies No Known Allergies Allergy (Verified 07/10/24 16:49) Medication List - Last Reconciled 07/10/24 by Sharon Hilliard MD levothyroxine 112 mcg PO DAILY Tobacco use date assessed: 07/10/24 Dental Screening Dental Screen Date: 07/10/24 Did you have a dental visit in the last 12 months?: Yes Did you have a dental problem in the last 6 months where you did not have access to dental care?: No Was dental information given to patient?: Patient has dentist HPI HPI Comments History of Present Illness Details The patient is a 33-year-old female presenting for physical exam with complaints of pain in the right foot. The patient reports the pain originates from an area near the bone on the foot, which becomes noticeably red and irritated with physical activity or when pressure is applied by various types of footwear, including loose-fitting shoes. The symptoms have persisted for an unspecified duration, causing discomfort and an impact on daily ambulation. No previous medical evaluation or treatment for this specific issue were reported. Additionally, the patient's medical history is significant for hypothyroidism, managed with levothyroxine 112 mcg, and she presents with constipation, which she attributes to her thyroid condition. Noteworthy family medical history includes father's coronary artery disease and schizophrenia, and mother's hypertension and pancreatic cancer. [facility] Medical History (Updated 07/10/24 @ 17:01 by Sharon Hilliard MD) Acute bacterial sinusitis Arcuate uterus Obesity (BMI 30-39.9) Hand pain Hypothyroidism Surgical History History of section Family History Father CVD (cardiovascular disease) Schizophrenia Mother Hypertension Pancreatic cancer Maternal Grandmother Anal cancer Family/Other FH: mental illness Other Mental health disorder Social History (Updated 07/10/24 @ 16:54 by Sharon Hilliard MD) Housing: House Alcohol intake: current Alcohol intake frequency: a few times a month Alcohol type: beer Patient Tobacco Use Status: Never used Tobacco e-Cigarette/Vaping Use: Never Used Second Hand Smoke Exposure: No service: No Current occupational status: employed Current occupation: [employer] Current occupational exposures/hazards: No Sexual orientation: Straight/Heterosexual Gender identity: Female Cognitive needs: No Hearing needs: No Vision needs: No Female Reproductive History Menstrual Age of Menarche: 14 Questionnaire PHQ-9 Over the last 2 weeks, how often have you been bothered by any of the following problems? 1. Little interest or pleasure in doing things: not at all 2. Feeling down, depressed, or hopeless: not at all 3. Trouble falling or staying asleep, or sleeping too much: not at all 4. Feeling tired or having little energy: several days 5. Poor appetite or overeating: not at all 6. Feeling bad about yourself - or that you are a failure or have let yourself or your family down: not at all 7. Trouble concentrating on things, such as reading the newspaper or watching television: not at all 8. Moving or speaking so slowly that other people could have noticed. Or the opposite - being so fidgety or restless that you have been moving around a lot more than usual: not at all 9. Thoughts that you would be better off or of hurting yourself in some way: not at all Total score: 1 Depression Screening Interpretation: Negative Depression Screening Done: Yes 81485 - PHQ-9 Billing: Yes Source: Developed by Drs. Juwan Norton, Tish Perales, Angus Guzman and colleagues, with an educational kia from [employer]. Thrive Questionnaire Date Thrive assessed: 07/10/24 I am a: Patient What is your living situation today?: I have a steady place to live Within the past 12 months, did the food you bought not last and you didn't have the money to get more?: Never true Within the past 12 months, did you worry whether your food would run out before you got money to buy more?: Never true Do you have trouble paying for medicines?: No Do you have trouble getting transportation to medical appointments?: No Do you have trouble paying your heating and electricity bill?: No Do you have trouble taking care of your child, family member or friend?: No Do you have trouble with day-to-day activities such as bathing, preparing meals, shopping, managing finances, etc.?: No Are you currently unemployed and looking for a job?: No Are you interested in more education?: No Please select the resources that you would like help with: None Currently or been in a relationship where the following occur: No concerns reported THRIVE Score: 0 AUDIT C Alcohol Use Questionnaire (AUDIT-C) 1. How often do you have a drink containing alcohol?: Monthly or less 2. How many drinks containing alcohol do you have on a typical day when you are drinking?: 5 or 6 3. How often do you have six or more drinks on one occasion?: Monthly Total Score: 5 DANITA-7 AMB Questionnaire DANITA-7 Date DANITA - 7 assessed: 07/10/24 Feeling nervous, anxious, or on edge: 0 = Not at all Not being able to stop or control worryin = Several days Worrying too much about different things: 1 = Several days Trouble relaxin = Several days Being so restless that it is hard to sit still: 0 = Not at all Becoming easily annoyed or irritable: 1 = Several days Feeling afraid as if something awful might happen: 0 = Not at all Total DANITA-7 score (0-4 normal; 5-9 mild; 10-14 moderate; 15-21 severe): 4 Source: Developed by Drs. Juwan Norton, Tish Perales, Angus Guzman and colleagues, with an educational kia from [employer]. DANITA-7 Assessment Billing DANITA-7 Assessment Tool: DANITA-7 Assessment 86141 Review of Systems Const All systems reviewed & are unremarkable except as noted in HPI and below Card Denies chest pain at rest, Denies chest pain with activity, Denies edema, Denies irregular heart rhythm, Denies claudication, Denies dyspnea, Denies dyspnea on exertion, Denies orthopnea, Denies paroxysmal nocturnal dyspnea and Denies slow heart rate Resp Denies cough, Denies dyspnea and Denies dyspnea on exertion GI Denies abdominal pain, Denies change in bowel habits, Denies excessive flatus, Denies nausea and Denies vomiting Denies urinary incontinence, Denies urinary hesitancy and Denies urinary urgency Musc Denies abnormal gait, Denies atrophy, Denies deformity and Denies limited range of motion Skin/Breast Denies bleeding lesions, Denies changing lesions and Denies rash Neuro Denies abnormal gait, Denies behavioral changes and Denies lack of coordination Psych Denies behavioral changes Physical exam (Primary Care) Vital Signs: Last Vital Signs BP 110/70 07/10/24 16:29 BMI result Body Mass Index 30.1 BMI Assessment/Plan discussion: High BMI High, discussed plan: lifestyle, weight reduction, dietary and physical activity Tobacco/Smoking Status: Tobacco use Status Tobacco use date assessed 07/10/24 07/10/24 16:34 Patient Tobacco Use Status Never used Tobacco 07/10/24 16:54 e-Cigarette/Vaping Use Never Used 07/10/24 16:54 PHQ-9: PHQ-9 Score PHQ-9: Total score 1 07/10/24 16:52 Depression Screening Interpretation: Negative Thrive Assessment: Date of Thrive Assessment Date Thrive assessed 07/10/24 07/10/24 16:34 Currently or been in a relationship where the following occur: No concerns reported [facility] Head: Yes normal to inspection, Yes normocephalic and Yes atraumatic Ears: external ears normal Eyes General: appearance normal, both eyes and all related structures Eyelids: Yes eyelids normal Conjunctivae: conjunctivae normal Neck Neck: Yes normal visual inspection and Yes supple Resp Effort & Inspection: normal respiratory effort Auscultation: clear to auscultation bilaterally Cardio Jugular venous distension: no JVD Rate: regular rate Rhythm: regular rhythm Heart sounds: S1 normal heart sound present and S2 normal heart sound present GI Inspection: Yes normal to inspection Palpation (GI): Soft to palpation and nontender Auscultation: normal bowel sounds Skin General skin exam: no rashes or lesions noted Neuro General: no focal motor deficits Extrem General: Yes full ROM Psych Appearance: grossly normal Office Procedures Flu Questionnaire Does the patient have a severe egg allergy?: No Immunizations Fluarix Triv [id number] (PF) 45 mcg (15 mcg x 3)/0.5 mL IM syringe Performing Provider: Sharon Hilliard MD [facility] Documented (not given) by: JUAN Avendaño on 07/10/24 16:34 Reason Not Given: Patient Refused Coding Level of Care Code Est Pt Level 3 (41753) Est Pt Prev Care 18-39y(32529) Diagnoses Adult general medical exam Z00.00 Bunion, right foot M21.611 Additional Codes DANITA-7 Assessment Billing - DANITA-7 Assessment Tool: DANITA-7 Assessment 66173 ([id number]) PHQ-9 - 99027 - PHQ-9 Billing: Yes ([id number]) Time Spent (min) 33 Assessment & Plan Assessment & Plan (1) Adult general medical exam: Code(s): Z00.00 - Encounter for general adult medical examination without abnormal findings Category: Medical (2) Bunion, right foot: Code(s): M21.611 - Bunion of right foot Category: Medical Plan - Referral to podiatry for evaluation of persistent left foot pain and possible imaging studies if clinically indicated. - Continue current dose of levothyroxine for hypothyroidism management, with scheduled thyroid function labs. - Advise an increase in dietary fiber to alleviate constipation symptoms. Patient was informed and verbally consented to the use of an ambient scribe for clinic note documentation during this visit. The patient and I discussed possible etiologies for her left foot pain, including mechanical causes due to footwear and potential need for further evaluation by a bus mechanic. We reviewed the importance of routine laboratory work to monitor her thyroid function, cholesterol levels, and overall health. I addressed the potential benefits of modifying lifestyle habits such as reducing alcohol consumption and increasing fiber intake to help manage her constipation issues. We also touched upon her family medical history to understand any relevant hereditary risks. The patient was advised on follow-up care and consultations needed, with reassurance regarding her current health status and treatment plan. Orders: Orders Influenza [id number] Immunization 07/10/24 Z23 - Encounter for immunization Lipid Panel 07/10/24 E78.5 - Hyperlipidemia, unspecified, Z00.00 - Encounter for general adult medical examination without abnormal findings Comprehensive [place]. Panel Fast 07/10/24 Z00.00 - Encounter for general adult medical examination without abnormal findings Thyroid Stimulating Hormone 07/10/24 E03.8 - Other specified hypothyroidism, E06.3 - Autoimmune thyroiditis XR foot RT 2V 07/10/24 M21.611 - Bunion of right foot Referrals Podiatry Referral M21.611 - Bunion of right foot Patient Instructions: - Follow up with a bus mechanic for further evaluation of foot pain. - Continue taking prescribed levothyroxine as directed. - Increase dietary fiber to manage constipation. - Limit alcohol intake to moderate levels. - Complete prescribed laboratory tests at the earliest convenience.
[2024-07-10 16:29] VITALS: BP 110/70; BMI 30.1
== END 2024-07-10 17:02 | disposition home or self-care (01) ==
PROVIDERS: PCP Internal Medicine; Visit Provider Internal Medicine
DX: Z23 Encounter for immunization (principal)

== ENCOUNTER → 2024-07-10 16:07 | Outpatient (BNVA) | payer OTHER, SELFPAY | PROVIDERS: PCP Internal Medicine; Visit Provider Internal Medicine | DX: Z00.00 Encounter for general adult medical examination without abnormal findings (principal); M21.611 Bunion of right foot; E03.9 Hypothyroidism, unspecified; E03.8 Other specified hypothyroidism; E06.3 Autoimmune thyroiditis; Z28.21 Immunization not carried out because of patient refusal | CPT/HCPCS: 90471; 96127; 99212; 99395 ==

== ENCOUNTER 2024-07-29 08:16 | Outpatient (REF) | payer OTHER, SELFPAY ==
--- NOTE | ~2024-07-29 | XR_ITS ---
CLINICAL HISTORY: M21.611 - Bunion of right foot 3 view right foot Comparison: None Findings: No fractures or dislocations. Very mild degenerative change of the right 1st metatarsophalangeal joint. No ankle effusion. No radiopaque foreign body. IMPRESSION: 1. No acute findings. 2. Very mild degenerative change of the right 1st metatarsophalangeal joint. This document has been electronically signed by: John Bellamy MD on 07/29/2024 21:20:42
[2024-07-29 09:38] LABS: Alanine Aminotransferase 16 U/L (0-31); Albumin Level 4.3 g/dL (3.5-5.0); Alkaline Phosphatase 58 U/L (39-117); Anion Gap 11 (12-20); Aspartate Amino Transferase 26 U/L (5-31); Bilirubin Total 0.5 mg/dL (0.0-1.0); Blood Urea Nitrogen 16 mg/dL (9-16); Calcium 9.1 mg/dL (8.4-10.2); Carbon Dioxide 26 mmol/L (22-29); Chloride 106 mmol/L (96-108); Cholesterol 168 mg/dL (<200); Estimated Glomerular Filt Rate > 60; Glucose Fasting 84 mg/dL (60-99); HDL Cholesterol 69 mg/dL (>40); LDL Cholesterol Calculated 88 mg/dL (<100); Potassium 4.1 mmol/L (3.3-5.1); Sodium 139 mmol/L (135-145); Total Protein 7.1 g/dL (6.5-8.0); Triglycerides 58 mg/dL (<150)
[2024-07-29 09:56] LABS: Thyroid Stimulating Hormone 34.15 uIU/mL (0.32-4.0)
== END 2024-07-29 08:17 | disposition home or self-care (01) ==
LOC: HO.LAB 08:16
PROVIDERS: PCP Internal Medicine; Visit Provider Internal Medicine
DX: Z00.00 Encounter for general adult medical examination without abnormal findings (principal); E03.8 Other specified hypothyroidism; E06.3 Autoimmune thyroiditis; E78.5 Hyperlipidemia, unspecified; M21.611 Bunion of right foot
CPT/HCPCS: 36415; 73620; 80053; 80061; 84443

== ENCOUNTER → 2024-07-29 08:36 | Outpatient (BNV) | payer OTHER, SELFPAY | PROVIDERS: PCP Internal Medicine; Visit Provider Radiology Vascular & Interventional Radiology | DX: M21.611 Bunion of right foot (principal) | CPT/HCPCS: 73620 ==

== ENCOUNTER → 2024-08-19 08:41 | Outpatient (BNVA) | payer OTHER, SELFPAY | PROVIDERS: PCP Internal Medicine; Visit Provider Advanced Practice Midwife | DX: Z01.419 Encounter for gynecological examination (general) (routine) without abnormal findings (principal) | CPT/HCPCS: 99395; 99459 ==

== ENCOUNTER 2024-09-20 10:46 | Outpatient (REF) | payer OTHER, SELFPAY ==
[2024-09-20 12:36] LABS: Free T4 (Free Thyroxine) 1.39 ng/dL (0.71-1.85); Thyroid Stimulating Hormone 0.66 uIU/mL (0.32-4.0)
== END 2024-09-20 10:47 | disposition home or self-care (01) ==
LOC: HO.LAB 10:46
PROVIDERS: PCP Internal Medicine; Visit Provider Internal Medicine
DX: E03.8 Other specified hypothyroidism (principal); E06.3 Autoimmune thyroiditis
CPT/HCPCS: 36415; 84439; 84443

== ENCOUNTER 2024-12-20 10:15 | Outpatient (REF) | payer OTHER, SELFPAY ==
[2024-12-20 11:48] LABS: Thyroid Stimulating Hormone 1.12 uIU/mL (0.32-4.0)
== END 2024-12-20 10:16 | disposition home or self-care (01) ==
LOC: HO.LAB 10:15
PROVIDERS: PCP Internal Medicine; Visit Provider Internal Medicine
DX: E03.8 Other specified hypothyroidism (principal); E06.3 Autoimmune thyroiditis
CPT/HCPCS: 36415; 84443

== ENCOUNTER 2025-01-08 09:40 | Outpatient (AMB) | payer OTHER, SELFPAY ==
[2025-01-08 09:49] VITALS: BP 92/56; PULSE 77; TEMP 36.8; O2SAT 98; BMI 28.6
--- NOTE | 2025-01-08 09:49 | MHC.OFFWIV ---
Intake Vital Signs 01/08/25 09:49 Height 5 ft 3 in Weight 161 lb 8 oz BMI 28.6 BP 92/56 L Blood Pressure Location Lt brachial Position Sitting Pulse 77 Pulse Source Pulse Oximeter Temp 98.3 F Temp Source Oral Pulse Oximetry (%) 98 Oxygen Delivery Method Room Air Intake Visit Reasons: EP Burning feeling in vagina, odor, pelvic pain Intake Note: Patient present with itching, burning with urination and pelvic pain times 4 days. 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 - The vaginal odor began on Sunday and was persistent throughout the day, not limited to urination. - She reported a vaginal odor, especially after intercourse. - No associated itching, external burning, or vaginal bleeding was noted. - She did report a burning sensation that occurred yesterday. - She called her OBGYN but was unable to make the appointment due to work. - The patient denies fever, chills, or back pain. - Her last menstrual period was from December 26 to around January 01. Physical Exam General: Cooperative, healthy appearing, comfortable, no acute distress and well developed Respiratory: Normal respiratory effort and able to speak in complete sentences. Clear to auscultation bilaterally Cardiovascular: Regular rate and rhythm. Normal S1 and S2 GI: Normal to inspection. Soft to palpation and nontender. No guarding or rebound tenderness noted. Skin: No rashes or lesions noted : No CVA tenderness noted. Patient was informed and verbally consented to the use of an ambient scribe for clinic note documentation during this visit. [facility] Medical History Acute bacterial sinusitis Arcuate uterus Obesity (BMI 30-39.9) Hand pain Hypothyroidism Surgical History History of section Family History Father CVD (cardiovascular disease) Schizophrenia Mother Hypertension Pancreatic cancer Maternal Grandmother Anal cancer Family/Other FH: mental illness Other Mental health disorder Social History Housing: House Alcohol intake: current Alcohol intake frequency: a few times a month Alcohol type: beer Patient Tobacco Use Status: Never used Tobacco e-Cigarette/Vaping Use: Never Used Second Hand Smoke Exposure: No Patient : No service: No Current occupational status: employed Current occupation: [employer] Current occupational exposures/hazards: No Sexual orientation: Straight/Heterosexual Gender identity: Female Cognitive needs: No Hearing needs: No Vision needs: No Female Reproductive History Menstrual Age of Menarche: 14 Review of Systems Const All systems reviewed & are unremarkable except as noted in HPI and below Physical Exam Vital Signs: Last Vital Signs Temp 98.3 F 01/08/25 09:49 Pulse 77 01/08/25 09:49 BP 92/56 L 01/08/25 09:49 Pulse Ox 98 01/08/25 09:49 Oxygen Delivery Method Room Air 01/08/25 09:49 BMI result Body Mass Index 28.6 Assessment & Plan Assessment & Plan (1) Vaginal odor: Code(s): N89.8 - Other specified noninflammatory disorders of vagina Plan Most likely BV vs STI vs yeast vs UTI UA in the office was negative Plan - Conduct swab tests to assess for bacterial vaginosis and other infections. - Await swab test results to guide treatment decisions. Orders: Orders Bacterial Vaginosis Panel Today N89.8 - Other specified noninflammatory disorders of vagina CT NG by PCR Today N89.8 - Other specified noninflammatory disorders of vagina Coding Level of Care Code Est Pt Level 3 (79230) Diagnoses Vaginal odor N89.8
== END 2025-01-08 10:27 | disposition home or self-care (01) ==
PROVIDERS: PCP Internal Medicine; Visit Provider Physician Assistant Medical
DX: N89.8 Other specified noninflammatory disorders of vagina (principal)

== ENCOUNTER 2025-01-08 09:40 | Outpatient (REF) | payer OTHER, SELFPAY ==
[2025-01-08 17:40] LABS: Bacterial Vaginosis PCR POSITIVE (Negative); Candida Group PCR DETECTED (Not Detect); Candida glab krusei PCR NOT DETECTED (Not Detect); Trichomonas vaginalis PCR NOT DETECTED (Not Detect)
[2025-01-08 18:11] LABS: CT PCR NOT DETECTED (Not Detect.); NG PCR NOT DETECTED (Not Detect.)
== END 2025-01-08 09:41 | disposition home or self-care (01) ==
LOC: HO.LAB 09:40
PROVIDERS: PCP Internal Medicine; Visit Provider Physician Assistant Medical
DX: N89.8 Other specified noninflammatory disorders of vagina (principal)
CPT/HCPCS: 81003; 81515; 87491; 87591; 99212